=== PATIENT | male | born 1930 | race Caucasian/White ===

== ENCOUNTER 2018-01-29 07:43 | Day surgery (SDC) | payer MEDICARE ==
[~2018-01-29] VITALS: Ht 170.2 cm; Wt 71.8 kg
[~2018-01-29 07:43] MED LIST: BRIM5DRO2 OP; FURO40TA4 PO; LEVO75TA7 PO; LIDOcaine 1%/PF 5ML 10 MG/ML VIAL SQ STA; LOSA25TA21 PO; POTA10TA36 PO; RIVA15TA PO
[2018-01-29 08:00] VITALS: BP 126/65
[2018-01-29] MEDS ORDERED: CYAN250010 (08:23)
[2018-01-29] MEDS ORDERED: DEC4T PO (08:23)
[2018-01-29] MEDS ORDERED: ONDA4TAB9 PO (08:23)
[2018-01-29] MEDS ORDERED: PROC-8 PO (08:23)
[2018-01-29] MEDS ORDERED: CHOL10002 PO (08:23)
[2018-01-29] MEDS ORDERED: DENO60DI SQ (08:23)
[2018-01-29] MEDS ORDERED: OLAN5TAB5 PO (08:23)
[2018-01-29] MEDS ORDERED: FOLI0.4T2 PO (08:23)
== END 2018-01-29 09:00 | disposition home or self-care (01) ==
LOC: SSTAY O 07:43
PROVIDERS: ATTEND Radiology Vascular & Interventional Radiology
DX: J90 Pleural effusion, not elsewhere classified (principal); I49.5 Sick sinus syndrome; I11.0 Hypertensive heart disease with heart failure; I50.31 Acute diastolic (congestive) heart failure; E03.9 Hypothyroidism, unspecified; I48.0 Paroxysmal atrial fibrillation; M81.0 Age-related osteoporosis without current pathological fracture; Z87.891 Personal history of nicotine dependence; Z85.46 Personal history of malignant neoplasm of prostate; Z90.79 Acquired absence of other genital organ(s); Z85.118 Personal history of other malignant neoplasm of bronchus and lung; Z95.0 Presence of cardiac pacemaker; Z79.01 Long term (current) use of anticoagulants; Z86.711 Personal history of pulmonary embolism; Z79.899 Other long term (current) drug therapy; Z98.890 Other specified postprocedural states
CPT/HCPCS: 76604; J2001